=== PATIENT | female | born 1975 | race African-American/Black ===

== ENCOUNTER 2017-11-13 13:05 | Emergency (ER) | payer SELFPAY ==
[2017-11-13 13:17] VITALS: BP 147/103
--- NOTE | 2017-11-13 13:21 | EKG REPORT ---
SEVERITY:- ABNORMAL ECG - SINUS TACHYCARDIA PROBABLE LEFT ATRIAL ABNORMALITY NONSPECIFIC T ABNORMALITIES, LATERAL LEADS : Confirmed by: Sherif Avila MD 13-Nov-2017 13:21:23
[2017-11-13] MEDS ORDERED: ASPIRIN 81 MG TABLET, CHEWABLE PO ONE (13:34)
--- NOTE | 2017-11-13 13:35 | ER Document Report ---
ED Medical Screen (RME) - General Chief Complaint: Chest Pain Stated Complaint: CHEST PAIN Time Seen by Provider: 11/13/17 13:30 Notes: Patient is a 42-year-old female who presents with several days of worsening right upper chest pain and tingling in her right arm. He has had this in the past, but has worsened over the past few days. PE: Tachycardia, lungs CTAB, strong radial pulses I have greeted and performed a rapid initial assessment of this patient. A comprehensive ED assessment and evaluation of the patient, analysis of test results and completion of the medical decision making process will be conducted by additional ED providers. TRAVEL OUTSIDE OF THE [place] IN LAST 30 DAYS: No - Related Data Allergies/Adverse Reactions: No Known Allergies Allergy (Verified 11/13/17 13:28) Past Medical History - Social History Chew tobacco use (# tins/day): No Frequency of alcohol use: Occasional Drug Abuse: None Renal/ Medical History: Denies: Hx Peritoneal Dialysis Physical Exam - Vital signs Vitals: Temp Pulse Resp BP Pulse Ox 99.0 F 112 H 18 147/103 H 96 11/13/17 13:15 11/13/17 13:15 11/13/17 13:15 11/13/17 13:15 11/13/17 13:15 Course - Vital Signs Vital signs: Temp Pulse Resp BP Pulse Ox 99.0 F 112 H 18 147/103 H 96 11/13/17 13:15 11/13/17 13:15 11/13/17 13:15 11/13/17 13:15 11/13/17 13:15
[2017-11-13 14:15] LABS: ABSOLUTE BASOPHILS # (AUTO) 0.1 10^3/uL (0.0-0.2); ABSOLUTE EOSINOPHILS # (AUTO) 0.1 10^3/uL (0.0-0.6); ABSOLUTE LYMPHOCYTES (AUTO) 2.6 10^3/uL (0.5-4.7); ABSOLUTE MONOCYTES (AUTO) 0.6 10^3/uL (0.1-1.4); ABSOLUTE NEUT (AUTO) 7.7 10^3/uL (1.7-8.2); BASOPHILS % (AUTO) 0.5 % (0-2); EOSINOPHILS % (AUTO) 1.2 % (0-6); HEMATOCRIT 41.4 % (36.0-47.0); HEMOGLOBIN 13.8 g/dL (12.0-15.5); LYMPHOCYTES % (AUTO) 23.7 % (13-45); MEAN CORPUSCULAR HEMOGLOBIN 29.2 pg (27.0-33.4); MEAN CORPUSCULAR HGB CONC 33.4 g/dL (32.0-36.0); MEAN CORPUSCULAR VOLUME 87 fl (80-97); MONOCYTES % (AUTO) 5.4 % (3-13); PLATELET COUNT 293 10^3/uL (150-450); RED BLOOD COUNT 4.75 10^6/uL (3.72-5.28); RED CELL DISTRIBUTION WIDTH 14.8 % (11.5-14.0); SEGMENTED NEUTROPHILS % (AUTO) 69.2 % (42-78); TOTAL CELLS COUNTED % (AUTO) 100 %; WHITE BLOOD COUNT 11.1 10^3/uL (4.0-10.5)
--- NOTE | 2017-11-13 14:16 | RADIOLOGY REPORT (SQ) ---
EXAM DESCRIPTION: CHEST SINGLE VIEW COMPLETED DATE/TIME: 11/13/2017 2:04 pm REASON FOR STUDY: chest pain COMPARISON: None. EXAM PARAMETERS: NUMBER OF VIEWS: One view. TECHNIQUE: Single frontal radiographic view of the chest acquired. RADIATION DOSE: NA LIMITATIONS: None. FINDINGS: LUNGS AND PLEURA: No opacities, masses or pneumothorax. No pleural effusion. MEDIASTINUM AND HILAR STRUCTURES: No masses. Contour normal. HEART AND VASCULAR STRUCTURES: Heart normal in size. Normal vasculature. BONES: No acute findings. HARDWARE: None in the chest. OTHER: No other significant finding. IMPRESSION: NO ACUTE RADIOGRAPHIC FINDING IN THE CHEST. TECHNICAL DOCUMENTATION: JOB ID: [id number] [employer]- All Rights Reserved Reading location - IP/workstation name: [email or web address]
--- NOTE | 2017-11-13 14:35 | ER Document Report ---
ED General - General Chief Complaint: Chest Pain Stated Complaint: CHEST PAIN Time Seen by Provider: 11/13/17 13:30 TRAVEL OUTSIDE OF THE [place] IN LAST 30 DAYS: No - HPI Patient complains to provider of: Chest pain Notes: Patient coming in for evaluation of chest pain. Patient states intermittent chest pain with bilateral hand numbness and intermittent headaches ongoing for greater than a week. Patient states symptoms occurred minutes at a time. Patient has not noted any exacerbating or relieving factors. Denies any trauma. Patient states chest pain right-sided. Denies any shortness of breath patient is currently upon her evaluation. Patient denies any neck trauma denies any neck injuries. Patient also denies any imaging of her neck. - Related Data Allergies/Adverse Reactions: No Known Allergies Allergy (Verified 11/13/17 13:28) Past Medical History - Social History Smoking Status: Current Every Day Smoker Chew tobacco use (# tins/day): No Frequency of alcohol use: Occasional Drug Abuse: None Family History: Reviewed & Not Pertinent Patient has suicidal ideation: No Patient has homicidal ideation: No Renal/ Medical History: Denies: Hx Peritoneal Dialysis Review of Systems - Review of Systems Constitutional: Weakness - Numbness in hands EENT: No symptoms reported Cardiovascular: Chest pain Respiratory: No symptoms reported Gastrointestinal: No symptoms reported Genitourinary: No symptoms reported Female Genitourinary: No symptoms reported Musculoskeletal: No symptoms reported Skin: No symptoms reported Hematologic/Lymphatic: No symptoms reported Neurological/Psychological: No symptoms reported Physical Exam - Vital signs Vitals: Temp Pulse Resp BP Pulse Ox 99.0 F 112 H 18 147/103 H 96 11/13/17 13:15 11/13/17 13:15 11/13/17 13:15 11/13/17 13:15 11/13/17 13:15 Interpretation: Normal - General General appearance: Appears well, Alert - HEENT Head: Normocephalic, Atraumatic Eyes: Normal Pupils: PERRL - Respiratory Respiratory status: No respiratory distress Chest status: Nontender, Tender Breath sounds: Normal Chest palpation: Normal - Cardiovascular Rhythm: Regular Heart sounds: Normal auscultation Murmur: No - Abdominal Inspection: Normal Distension: No distension Bowel sounds: Normal Tenderness: Nontender Organomegaly: No organomegaly - Back Back: Normal, Nontender - Extremities General upper extremity: Normal inspection, Nontender, Normal color, Normal ROM , Normal temperature General lower extremity: Normal inspection, Nontender, Normal color, Normal ROM , Normal temperature, Normal weight bearing. No: Zach's sign - Neurological Neuro grossly intact: Yes Cognition: Normal Orientation: AAOx4 Sherman Coma Scale Eye Opening: Spontaneous Tanvi Coma Scale Verbal: Oriented Tanvi Coma Scale Motor: Obeys Commands Tanvi Coma Scale Total: 15 Speech: Normal Motor strength normal: LUE, RUE, LLE, RLE Sensory: Normal - Psychological Associated symptoms: Normal affect, Normal mood - Skin Skin Temperature: Warm Skin Moisture: Dry Skin Color: Normal Course - Re-evaluation Re-evalutation: 11/13/17 22:26 The patient has atypical chest pain as the patient's chest pain is not suggestive of pulmonary embolus, cardiac ischemia, aortic dissection, or other serious etiology. Given the extremely low risk of these diagnoses further testing and evaluation for these possibilities does not appear to be indicated at this time. The patient has been instructed to return if the symptoms worsen or change in any way. Troponins negative. Neck x-ray does show signs of diffuse arthritis more likely possible examination for the patient's numbness. Patient was given follow-up to give the patient's information to our social science manager will help establish follow-up. Patient prefer care discharged home. - Vital Signs Vital signs: Temp Pulse Resp BP Pulse Ox 99.0 F 112 H 18 147/103 H 96 11/13/17 13:15 11/13/17 13:15 11/13/17 13:15 11/13/17 13:15 11/13/17 14:03 - Laboratory Result Diagrams: 11/13/17 13:54 11/13/17 13:54 Laboratory results interpreted by me: 11/13/17 11/13/17 13:54 13:54 WBC 11.1 H RDW 14.8 H Creatine Kinase 137 H Discharge - Discharge Clinical Impression: Right-sided chest wall pain, Paresthesias, Cervical spine arthritis Condition: Good Disposition: HOME, SELF-CARE Instructions: Anti-Inflammatory Medication ([facility]), Arthritis ([facility]), Chest Wall Pain ([facility]), Family Physicians / Practices Additional Instructions: Laboratory studies today did not show any signs of cardiac damage cardiac ischemia. Highly recommend she follow-up with primary care physician or the physicians provided. Your x-ray of your neck does show some arthritis which can be causing some of the numbness and tingling in your hands and in your arms. This need to be further workup by primary care physician. Return to ER if symptoms worsen take medication as prescribed Prescriptions: Ibuprofen [Motrin 800 mg Tablet] 800 mg PO Q8H PRN #30 tab PRN Reason: Forms: Return to Work
[2017-11-13 14:39] LABS: ALANINE AMINOTRANSFERASE 26 U/L (9-52); ALKALINE PHOSPHATASE 70 U/L (38-126); ANION GAP 13 (5-19); ASPARTATE AMINO TRANSFERASE 21 U/L (14-36); BILIRUBIN,DIRECT 0.2 mg/dL (0.0-0.4); BILIRUBIN,TOTAL 0.8 mg/dL (0.2-1.3); BLOOD UREA NITROGEN 9 mg/dL (7-20); CALCIUM 9.9 mg/dL (8.4-10.2); CARBON DIOXIDE 23 mmol/L (22-30); CHLORIDE 107 mmol/L (98-107); CREATINE KINASE 137 U/L (30-135); GLUCOSE 75 mg/dL (75-110); POTASSIUM 4.3 mmol/L (3.6-5.0); SODIUM 142.7 mmol/L (137-145); TOTAL PROTEIN 6.6 g/dL (6.3-8.2)
--- NOTE | 2017-11-13 14:50 | RADIOLOGY REPORT (SQ) ---
EXAM DESCRIPTION: CERV SP 4 OR 5 VIEWS COMPLETED DATE/TIME: 11/13/2017 2:35 pm REASON FOR STUDY: neck pain arm pain COMPARISON: None. NUMBER OF VIEWS: Five views. TECHNIQUE: AP, lateral, obliques and odontoid radiographic images acquired of the cervical spine. LIMITATIONS: None. FINDINGS: MINERALIZATION: Normal. ALIGNMENT: Grade 1 anterolisthesis of C6 relative to C5. VERTEBRAE: Vertebral bodies of normal height. DISCS: Disc space narrowing and osteophyte formation C5-6. FORAMINA: No osteophytes or foraminal narrowing. LATERAL AND POSTERIOR ELEMENTS: Facets, lateral masses and spinous processes without significant find ings. HARDWARE: None in the spine. SOFT TISSUES: No masses or calcifications. Lung apices clear. OTHER: No other significant finding. IMPRESSION: Cervical disc disease C5-6. TECHNICAL DOCUMENTATION: JOB ID: [id number]- All Rights Reserved Reading location - IP/workstation name: [email or web address]
[2017-11-13] MEDS ORDERED: LIDOCAINE 5% (700 MG) TRANSDERMAL ADH..PATCH TP ONE (16:17)
== END 2017-11-13 16:30 | disposition home or self-care (01) ==
LOC: ER 13:05
DX: M46.92 Unspecified inflammatory spondylopathy, cervical region (principal); R20.2 Paresthesia of skin; R07.89 Other chest pain; R53.1 Weakness; F17.200 Nicotine dependence, unspecified, uncomplicated
CPT/HCPCS: 36415; 71045; 72050; 80053; 82550; 84484; 85025; 93005; 93010; 99285